=== PATIENT | male | born 1975 ===

== ENCOUNTER 2025-02-01 07:54 | Outpatient (AMB) | payer MEDICAID, SELFPAY ==
--- NOTE | 2025-02-01 07:59 | MHC.OFFVIS ---
Intake Visit Reasons: Erectile dysfunction Intake Note: Patient is present for ERECTILE DYSFUNCTION Urology Medication:NONE Antibiotic Allergy:NONE Blood Thinner:NONE Assistant Front End Manager Required: Yes Allergies No Known Allergies Allergy (Verified 02/01/25 08:49) Medication List - Last Reconciled 02/01/25 by BRI Tang- amlodipine 10 mg PO DAILY amlodipine-olmesartan 5-20 mg 1 tab PO DAILY atorvastatin 40 mg PO BEDTIME insulin glargine (Lantus Solostar U-100 Insulin) 20 units subcut BEDTIME levetiracetam 750 mg PO BID metformin 500 mg PO BID valsartan 160 mg PO DAILY HPI Comments Details: Fredrick is a very pleasant 49-year-old [place] Creole speaking patient of Dr. Cui. 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 He presents to the office today as a new patient for erectile dysfunction. In discussion with the patient today reports over the last 2 years he has been having issues with maintaining and obtaining his erections. He reports over the last few months he has not been able to obtain any erection. He denies any previous trauma. He denies any issues with his urination. He denies any recreational drug use and or alcohol dependence. We did discussed at length potential causes of ED as well as further treatment options and risks and benefits of these treatment options. When asked he denies urinary urgency, urinary frequency, incontinence, nocturia, hematuria, dysuria, foul smelling urine, changes to urinary stream, flank pain, fever, and or chills. He is happy with his current voiding parameters. All questions were answered. We discussed obtaining labs for further assessment evaluation. We also discussed the importance of lifestyle modifications to assist with ED as well as overall health and well-being. We discussed correlation of diabetes and erectile dysfunction. He otherwise offers no other issues or concerns at this time. Review of Systems Const All systems reviewed & are unremarkable except as noted in HPI and below Physical Exam Const General: cooperative, healthy appearing, comfortable, no acute distress, well developed, alert and awake Orientation/consciousness: patient oriented x3 Limitations: no limitations HEENT Head: Yes normal to inspection, Yes normocephalic and Yes atraumatic Ears: hearing grossly normal bilaterally Eyes General: appearance normal, both eyes and all related structures Neck Neck: Yes normal visual inspection and Yes trachea midline Chest Chest palpation & inspection: normal inspection of the chest Resp Effort & Inspection: normal respiratory effort and able to speak in complete sentences Cardio Rate: regular rate GI Inspection: Yes normal to inspection General: Yes no CVA tenderness Back/Spine/Pelvis Back: no CVA tenderness Skin General skin exam: no rashes or lesions noted Neuro General: patient oriented x3 Extrem General: Yes normal to inspection Psych Appearance: grossly normal and well kempt Mental Status: mental status grossly normal Speech and movement: Normal speech and movement present and Clear speech present Affect: normal affect Attitude: cooperative Thought process: Normal thought process present Thought content: Normal thought content present Insight: Fair insight present (Psych) Judgement: Fair judgement present (Psych) Assessment & Plan Assessment & Plan (1) Erectile dysfunction associated with type 2 diabetes mellitus: Code(s): E11.69 - Type 2 diabetes mellitus with other specified complication; N52.1 - Erectile dysfunction due to diseases classified elsewhere Category: Medical Plan Unable to obtain urine for urinalysis today as patient unable to void. We discussed potential causes of ED as well as further treatment options and risks and benefits of these treatment options. He currently denies any bothersome urinary issues or concerns. He reports be happy with current voiding parameters. Will obtain PSA, A1c, testosterone, free testosterone, and LH for further assessment evaluation. Start low-dose Cialis as discussed and prescribed. We discussed lifestyle modifications to assist with ED as well as overall health and well-being. We discussed correlation of diabetes and erectile dysfunction All questions were answered Follow-up in 3-4 months with labs; or sooner with any issues, concerns, and or questions. Medications: New tadalafil (Cialis) administer approximately 30min before sexual activity; do not use more than 1 dose per 24hrs; do not exceed more than 2-3 times per week [id number] [facility] [id number] Member [id number] 10 mg PO .PRN PRN 14 tabs 3RF sexual activity 30 days tadalafil (Cialis) [id number] [facility] [id number] Member [id number] 5 mg PO DAILY 90 tabs 1RF 90 days Patient Instructions: The patient had an opportunity to ask questions regarding the treatment plan. All questions were answered. Physical exam, labs, and imaging were discussed and reviewed in detail. As well as risks, benefits, and discussion of treatment choices. No major barriers to understanding were identified. The patient expressed understanding and agreement with the above treatment plan. The patient was made aware they should contact our office by phone for worsening of their current condition, the appearance of new symptoms, or with any questions or concerns. Compliance is encouraged with any medications and follow up testing that is ordered. It is a privilege to be allowed the opportunity to participate in? your urological care.? Again, if you have any questions or concerns If you have any questions or concerns please do not hesitate to contact me. The office is [phone]. This note is constructed using voice recognition software. While every effort has been made to ensure accuracy room service runner errors may have been included. Yours sincerely, CARLOS A Tang Coding Level of Care Code New Pt Level 4 (79726) Diagnoses Erectile dysfunction associated with type 2 diabetes mellitus E11.69; N52.1
== END 2025-02-01 08:41 | disposition home or self-care (01) ==
LOC: HO.HUSH 07:54
PROVIDERS: PCP Registered Nurse; Visit Provider Nurse Practitioner Family
DX: E11.69 Type 2 diabetes mellitus with other specified complication (principal); N52.1 Erectile dysfunction due to diseases classified elsewhere
CPT/HCPCS: 99204

== ENCOUNTER → 2025-02-01 07:54 | Outpatient (BNVA) | payer MEDICAID, SELFPAY | PROVIDERS: PCP Registered Nurse; Visit Provider Nurse Practitioner Family | DX: E11.69 Type 2 diabetes mellitus with other specified complication (principal); N52.1 Erectile dysfunction due to diseases classified elsewhere; Z79.4 Long term (current) use of insulin; Z79.84 Long term (current) use of oral hypoglycemic drugs | CPT/HCPCS: 99212 ==